=== PATIENT | male | born 1995 | race Caucasian/White ===

== ENCOUNTER 2018-04-06 18:02 | Emergency (ER) | payer BC ==
[~2018-04-06] VITALS: Ht 172.7 cm; Wt 68.6 kg
[2018-04-06 18:10] VITALS: TEMP 36.4; Ht 172.7 cm; Wt 68.6 kg
--- NOTE | 2018-04-06 18:22 | EMERGENCY ROOM VISIT NOTE ---
History Report prepared by Zohraibmiguel a: Christianne Conley Under the Supervision of: Dr. Champ Irving M.D. First contact with patient: 18:13 Chief Complaint: OTHER COMPLAINT Stated Complaint: NUMBNESS IN RIGHT HALF OF FACE History of Present Illness The patient is a 22 year old male who presents to the Emergency Room with complaints of intermittent numbness in the right side of his face that started last night. He reports he hasn't been sleeping well at night for the past week, and last night noticed numbness in the right side of his face. He thinks the episode lasted for about 45 minutes and when he woke up this morning, the numbness was gone. He admits to a minor headache last night as well. He denies any recent fevers, cough or cold symptoms or congestion. The patient admits to a history of OCD. His Mother states while the patient was in High School, he started experiencing possible seizures and has residual palinopsia. He followed with Neurology at [facility] in [place] and has not seen a Neurologist since he's turned 19. Source of History: patient Onset: last night Position: head (right side of face) Quality: numbness Timing: intermittent Associated Symptoms: + headache, No fevers, No cough (or cold symptoms, congestion) Review of Systems See HPI for pertinent positives & negatives. A total of 10 systems reviewed and were otherwise negative. Past Medical & Surgical Medical Problems: (1) History of migraine headaches (2) History of seizures (3) OCD (obsessive compulsive disorder) Social History Smoking Status: Never Smoker Alcohol Use: none Drug Use: none Marital Status: single Housing Status: lives with family Occupation Status: student Current/Historical Medications No Active Prescriptions or Reported Meds Allergies Coded Allergies: No Known Allergies (Unverified , 02/27/12) Physical Exam Vital Signs Date Time Temp Pulse Resp B/P (MAP) Pulse Ox O2 Delivery O2 Flow Rate FiO2 04/06/18 20:58 61 18 121/71 98 Room Air 04/06/18 19:19 62 18 123/82 98 Room Air 04/06/18 18:10 36.4 61 18 116/71 98 Physical Exam GENERAL: Patient is in no acute distress. HEENT: No acute trauma, normocephalic atraumatic, mucous membranes moist, no nasal congestion, no scleral icterus. PERRL. No facial droop. NECK: No stridor, no adenopathy, no meningismus, trachea is midline. LUNGS: Clear to auscultation bilaterally, no wheeze, no rhonchi, breath sounds equal. HEART: Without murmurs gallops or rubs, regular rate and rhythm. ABDOMEN: Soft, nontender, bowel sounds positive, no hernias, no peritonitis. EXTREMITIES: No cyanosis or edema, full range of motion of all the joints without pain or difficulty, no signs for acute trauma. NEUROLOGIC: Oriented x 3, no acute motor or sensory deficits, no focal weakness. No cerebellar dysfunction, no speech slur, no pronator drift. SKIN: No rash, no jaundice, no diaphoresis. Medical Decision & Procedures ER Provider Diagnostic Interpretation: Radiology results as stated below per my review and radiologist interpretation: MRI OF THE BRAIN WITHOUT AND WITH IV CONTRAST CLINICAL HISTORY: right facial numbness, headache COMPARISON STUDY: Noncontrast head CT dated 02/05/2012 TECHNIQUE: MRI of the brain was performed from the vertex to the skull base utilizing various T1 and T2 weighted sequences. Following the IV administration of 6.5 mL of Gadavist contrast, additional enhanced images were obtained. FINDINGS: Sagittal T1, axial diffusion, proton density and T2 weighted axial, coronal FLAIR, and pre and post axial T1-weighted images were acquired. These were supplemented with post gadolinium coronal T1 weighted images. No intra or extra-axial mass lesions are visualized. Axial diffusion-weighted images reveal no evidence of acute or subacute infarction. There is no evidence of ventricular dilatation. Proton density T2-weighted and FLAIR images reveal no significant intraparenchymal signal abnormalities. There are no abnormal flow voids. There is no evidence of pathologic enhancement. IMPRESSION: Normal MRI of the brain Electronically signed by: Cleveland Yañez M.D. 04/06/2018 8:31 PM Laboratory Results 04/06/18 19:15 Red Blood Count 5.04, Mean Corpuscular Volume 90.9, Mean Corpuscular Hemoglobin 30.8, Mean Corpuscular Hemoglobin Concent 33.8, Mean Platelet Volume 9.0, Neutrophils (%) (Auto) 65.5, Lymphocytes (%) (Auto) 27.1, Monocytes (%) (Auto) 6.4, Eosinophils (%) (Auto) 0.5, Basophils (%) (Auto) 0.3, Neutrophils # (Auto) 4.20, Lymphocytes # (Auto) 1.74, Monocytes # (Auto) 0.41, Eosinophils # (Auto) 0.03, Basophils # (Auto) 0.02 04/06/18 19:15 Test 04/06/18 19:15 04/06/18 19:25 White Blood Count 6.41 K/uL (4.8-10.8) Red Blood Count 5.04 M/uL (4.7-6.1) Hemoglobin 15.5 g/dL (14.0-18.0) Hematocrit 45.8 % (42-52) Mean Corpuscular Volume 90.9 fL (80-100) Mean Corpuscular Hemoglobin 30.8 pg (25-34) Mean Corpuscular Hemoglobin Concent 33.8 g/dl (32-36) Platelet Count 279 K/uL (130-400) Mean Platelet Volume 9.0 fL (7.4-10.4) Neutrophils (%) (Auto) 65.5 % Lymphocytes (%) (Auto) 27.1 % Monocytes (%) (Auto) 6.4 % Eosinophils (%) (Auto) 0.5 % Basophils (%) (Auto) 0.3 % Neutrophils # (Auto) 4.20 K/uL (1.4-6.5) Lymphocytes # (Auto) 1.74 K/uL (1.2-3.4) Monocytes # (Auto) 0.41 K/uL (0.11-0.59) Eosinophils # (Auto) 0.03 K/uL (0-0.5) Basophils # (Auto) 0.02 K/uL (0-0.2) RDW Standard Deviation 42.8 fL (36.4-46.3) RDW Coefficient of Variation 12.9 % (11.5-14.5) Immature Granulocyte % (Auto) 0.2 % Immature Granulocyte # (Auto) 0.01 K/uL (0.00-0.02) Anion Gap 5.0 mmol/L (3-11) Est Creatinine Clear Calc Drug Dose 106.6 ml/min Estimated GFR () 115.7 Estimated GFR (Non- 99.8 BUN/Creatinine Ratio 10.9 (10-20) Calcium Level 9.1 mg/dl (8.5-10.1) Magnesium Level 2.1 mg/dl (1.8-2.4) Thyroid Stimulating Hormone (TSH) 1.380 uIu/ml (0.300-4.500) Urine Opiates Screen NEG (NEG) Urine Methadone, Qualitative NEG (NEG) Urine Barbiturates NEG (NEG) Urine Phencyclidine (PCP) Level NEG (NEG) Ur Amphetamine/Methamphetamine NEG (NEG) MDMA (Ecstasy) Screen NEG (NEG) Urine Benzodiazepines Screen NEG (NEG) Urine Cocaine Metabolite NEG (NEG) Urine Marijuana (THC) NEG (NEG) Laboratory results reviewed by me. ECG Per My Interpretation Indication: weakness Rate (beats per minute): 61 Rhythm: sinus with SA Findings: no ectopy, other (Mild ST elevation likely consistent with early repolarization, no PVC) ED Course 1813: The patient was evaluated in room A12. A complete history and physical exam was performed. 2030: Gadavist 6.5 mmol IV. 2042: I reevaluated the patient. He is resting comfortably. I discussed his results and discharge instructions and she verbalized complete understanding and agreement. Medical Decision The differential diagnoses considered include anxiety, intracranial mass, stroke , migraine headache, electrolyte imbalance, anemia, dysrhythmia, thyroid disorder. There is no leukocytosis or concerning anemia. No significant electrolyte abnormality, no kidney failure. The patient appears to be in a euthyroid state. Urine tox is negative. EKG shows a sinus rhythm with some sinus arrhythmia, no dysrhythmia, no ischemia. Brain MRI shows no acute bleed, there is no mass, no stroke. On exam, the patient had no focal neurologic deficits. He was not toxic or febrile. He did seem anxious. The patient's workup is benign, he was reassured. He is being discharged to follow with his family doctor and then eventually neurology. If things are worsening, he can return. His numbness may actually have just been from anxiety , he understands. Medication Reconcilliation Current Medication List: was personally reviewed by me Blood Pressure Screening Patient's blood pressure: Normal blood pressure Blood pressure disposition: Did not require urgent referral Impression Primary Impression: Right facial numbness Additional Impression: Headache Scribe Attestation The scribe's documentation has been prepared under my direction and personally reviewed by me in its entirety. I confirm that the note above accurately reflects all work, treatment, procedures, and medical decision making performed by me. Departure Information Dispostion Home / Self-Care Prescriptions No Active Prescriptions or Reported Meds Referrals Zohra Garcia D.O. (PCP) Patient Instructions My [facility] Additional Instructions lab testing and MRI today were normal see domitila marsh for a neurology referral return if worsening Stroke History Time Last Known Well 0200 today Stroke t-PA Criteria Reviewed Does NOT meet criteria for t-PA Reason t-PA Not Given Treatment provided - N/A, Treatment not indicated Problem Qualifiers
[2018-04-06 19:29] LABS: BASO % 0.3 %; BASO ABS # 0.02 K/uL (0-0.2); EOS % 0.5 %; EOS ABS # 0.03 K/uL (0-0.5); HEMATOCRIT 45.8 % (42-52); HEMOGLOBIN 15.5 g/dL (14.0-18.0); IG# 0.01 K/uL (0.00-0.02); LYMPH % 27.1 %; LYMPH ABS # 1.74 K/uL (1.2-3.4); MEAN CELL VOLUME 90.9 fL (80-100); MEAN CORPUSCULAR HEMOGLOBIN 30.8 pg (25-34); MEAN CORPUSCULAR HGB CONC 33.8 g/dl (32-36); MONO % 6.4 %; MONO ABS # 0.41 K/uL (0.11-0.59); NEUT % 65.5 %; PLATELET COUNT 279 K/uL (130-400); RED CELL DISTRIBUTION WIDTH CV 12.9 % (11.5-14.5); RED CELL DISTRIBUTION WIDTH SD 42.8 fL (36.4-46.3); WHITE BLOOD COUNT 6.41 K/uL (4.8-10.8)
[2018-04-06 19:57] LABS: CALCIUM 9.1 mg/dl (8.5-10.1); CREATININE 1.06 mg/dl (0.60-1.40); POTASSIUM 3.8 mmol/L (3.5-5.1)
[2018-04-06] MEDS ORDERED: GADAVIST IV PRN (20:30)
--- NOTE | 2018-04-06 20:33 | DIAGNOSTIC IMAGING REPORT ---
MRI OF THE BRAIN WITHOUT AND WITH IV CONTRAST CLINICAL HISTORY: right facial numbness, headache COMPARISON STUDY: Noncontrast head CT dated 02/05/2012 TECHNIQUE: MRI of the brain was performed from the vertex to the skull base utilizing various T1 and T2 weighted sequences. Following the IV administration of 6.5 mL of Gadavist contrast, additional enhanced images were obtained. FINDINGS: Sagittal T1, axial diffusion, proton density and T2 weighted axial, coronal FLAIR, and pre and post axial T1-weighted images were acquired. These were supplemented with post gadolinium coronal T1 weighted images. No intra or extra-axial mass lesions are visualized. Axial diffusion-weighted images reveal no evidence of acute or subacute infarction. There is no evidence of ventricular dilatation. Proton density T2-weighted and FLAIR images reveal no significant intraparenchymal signal abnormalities. There are no abnormal flow voids. There is no evidence of pathologic enhancement. IMPRESSION: Normal MRI of the brain Electronically signed by: Cleveland Yañez M.D. 04/06/2018 8:31 PM Dictated Date/Time: 04/06/2018 8:29 PM
[2018-04-06 20:58] VITALS: BP 121/71; PULSE 61; O2SAT 98
== END 2018-04-06 20:57 | disposition home or self-care (01) ==
LOC: C.EDB 18:04 → C.EDA 20:57
DX: R20.0 Anesthesia of skin (principal); R51 Headache; F42.9 Obsessive-compulsive disorder, unspecified